=== PATIENT | female | born 1970 | race Caucasian/White ===

== ENCOUNTER → 2017-05-31 | Outpatient (CLI) | payer MEDICAID ==
[~2017-05-31] MED LIST: BUSPAR 10MG TAB10 MG PO; DARVOCET-N 1001 EACH PO; FLEXERIL10 MG PO; RISPERDAL3 MG PO; TRAZODONE150 MG PO; VOLTAREN75 MG PO
[2017-05-31 15:12] LABS: HEMOGLOBIN 15.2 g/dL (12.2-16.2); LYMPH # 3.1 K/mm3 (0.7-4.5); LYMPH % 26.7 % (10-50.0)
[2017-05-31 16:15] LABS: BUN 8 mg/dL (7-18)
[2017-05-31 16:16] LABS: GFR (ESTIMATED) 89 ML/MIN (59-)
== END ==
LOC: LAB 15:01
PROVIDERS: Surgery
DX: K80.12 Calculus of gallbladder with acute and chronic cholecystitis without obstruction (principal); Z01.812 Encounter for preprocedural laboratory examination; Z01.810 Encounter for preprocedural cardiovascular examination; Z01.811 Encounter for preprocedural respiratory examination

== ENCOUNTER → 2017-07-05 | Outpatient (CLI) | payer MEDICAID ==
[2017-07-05 11:57] LABS: BILIRUBIN, INDIRECT 0.24 mg/dL (0-0.9)
== END ==
LOC: LAB 09:56
PROVIDERS: Surgery
DX: K80.10 Calculus of gallbladder with chronic cholecystitis without obstruction (principal); K83.8 Other specified diseases of biliary tract; K83.1 Obstruction of bile duct